=== PATIENT | female | born 1995 | race Caucasian/White ===

== ENCOUNTER 2017-11-01 16:21 | Emergency (ER) | payer OTHER ==
[~2017-11-01] VITALS: Ht 154.9 cm; Wt 58.9 kg
[2017-11-01 19:44] LABS: HEMATOCRIT 43.9 % (36.0-46.0); HEMOGLOBIN 14.9 G/DL (11.9-15.5); MCH 28.3 PG (29.0-34.0); MCHC 33.9 G/DL (30.0-36.0); MCV 83.3 FL (83-99); PLATELET COUNT 266 K/uL (156-360); RBC DIS.WIDTH-CV 11.9 % (11.8-14.6); RBC DIS.WIDTH-SD 35.8 % (39-53); RED BLOOD COUNT 5.27 M/uL (3.80-5.20); WHITE BLOOD COUNT 4.5 K/uL (4.1-10.2)
[2017-11-01 19:57] LABS: ALBUMIN 4.3 g/dL (3.2-4.8); CHLORIDE 105 mEq/L (99-109); SODIUM 139 mEq/L (136-147)
[2017-11-01 20:00] LABS: GLUCOSE 85 mg/dL (70-99); TOTAL PROTEIN 7.8 g/dL (6.4-8.3)
[2017-11-01 20:02] LABS: TOTAL BILIRUBIN 0.4 mg/dL (0.0-1.0)
[2017-11-01 20:03] LABS: ALKALINE PHOSPHATASE 85 IU/L (3-129); CREATININE 0.7 mg/dL (0.6-1.3); GFR ESTIMATE (CALCULATED) > 59 mL/min/
[2017-11-01 20:04] LABS: UREA NITROGEN (BUN) 8 mg/dL (9-23)
[2017-11-01 20:05] LABS: AST (GOT) 32 IU/L (2-34)
[2017-11-01 20:06] LABS: ALT (GPT) 24 IU/L (3-49)
[2017-11-01 20:10] LABS: APPEARANCE SL.HAZY ((CLEAR)); BILIRUBIN NEGATIVE; BLOOD NEGATIVE; COLOR YELLOW ((YELLOW)); GLUCOSE (STRIP) NEGATIVE; KETONES 80; LEUKOCYTES NEGATIVE; NITRITE NEGATIVE; PROTEIN (STRIP) 30; SPECIFIC GRAVITY 1.024 (1.000-1.030); UROBILINOGEN 0.2 MG/DL (0.2-1.0)
[2017-11-01 20:12] LABS: QUANTITATIVE HCG < 4.0 MIU/ML
[2017-11-01 20:31] LABS: BACTERIA 2+ /HPF; EPITHELIAL CELLS 3+ /HPF; MUCUS 1+ /LPF; RED BLOOD CELLS 0-5 /HPF (0-5); UCUL ADDED? YES; WHITE BLOOD CELLS 0-5 /HPF (0-5)
[2017-11-02 01:19] VITALS: BP 102/65
[2017-11-02] MEDS ORDERED: ZOFRAN4 MG PO ×2 (02:16→02:17)
== END 2017-11-02 01:25 | disposition home or self-care (01) ==
LOC: EME 16:21
DX: B34.9 Viral infection, unspecified (principal); E86.0 Dehydration; J06.9 Acute upper respiratory infection, unspecified; R11.2 Nausea with vomiting, unspecified; N39.0 Urinary tract infection, site not specified
CPT/HCPCS: 80053; 81003; 84702; 85027; 87086; 99281; 99285; J0780; J7040; J7120